=== PATIENT | male | born 1980 | race Caucasian/White ===

== ENCOUNTER 2021-07-14 10:51 | Emergency (ER) | payer OTHER, SELFPAY ==
[2021-07-14 11:03] VITALS: BP 144/77; PULSE 80; RESP 16; TEMP 36.1; O2SAT 100
--- NOTE | 2021-07-14 11:24 | ED.GENADULT ---
HPI - General Adult General Chief complaint: Skin/Abscess/Foreign Body Stated complaint: redness/painful right leg Time Seen by Provider: 07/14/21 11:24 Source: patient and RN notes reviewed Mode of arrival: ambulatory Limitations: no limitations History of Present Illness HPI narrative: 41-year-old male presents with complaints of redness, warmth, and pain to right lower leg for 1 day. Cristo reports increasing redness and warmth throughout the night. Cristo reports he noticed a blister to RT heel on Friday07/10/21 after walking in which busted 2 days later and then redness and warmth to leg. Elevation and Tylenol last taken on 07/13/21 with no relief. Denies radiation of tenderness, redness, or swelling. Denies numbness or tingling. No exacerbating factors. Denies drainage. Denies fever or chills. Denies nausea, vomiting, and abdominal pain. Tolerating po liquids. Remains active. The patient reports he has not been diagnosed with COVID-19. The patient reports he received 2 Pfizer COVID-19 vaccines. The patient reports he is not waiting for the results of a COVID-19 lab test. The patient reports he does not have weakness, fatigue, or myalgia. The patient reports he does not have a new or worsening cough or shortness of breath. The patient reports he does not have any rhinorrhea, congestion, loss of taste or smell, sore throat, and diarrhea. Denies recent traveling. Denies concerns for COVID-19 or exposures. At this time, the patient is not suspected of having COVID-19. Some parts of this dictation were generated by voice recognition software and may contain typographical and/or grammatical inaccuracies. Related Data Home Medications Medication Instructions Recorded Confirmed atorvastatin 07/14/21 calcium phos,dibas-vitamin D3 tablet PO 07/14/21 [Vitamin D (with calcium)] dapagliflozin [Farxiga] mg 07/14/21 glipizide mg 07/14/21 lisinopril 07/14/21 metformin mg PO 07/14/21 07/14/21 Allergies Allergy/AdvReac Type Severity Reaction Status Date / Time codeine Allergy Palpitation Verified 07/14/21 11:17 s Review of Systems Review of Systems: CONSTITUTIONAL: Denies fever, chills, sweats. EYES: Denies visual changes, redness, discharge. ENT: Denies rhinorrhea, congestion, sore throat, otalgia. CARDIOVASCULAR: Denies chest pain, palpitations, edema. RESPIRATORY: Denies dyspnea, wheezing, cough. GASTROINTESTINAL: Denies abdominal pain, nausea, vomiting, diarrhea. SKIN: Complains of redness, swelling, warmth, and pain to RT lower leg . MUSCULOSKELETAL: Denies acute back pain, joint pain, or myalgia. NEUROLOGIC: Denies numbness or focal weakness. PSYCHIATRIC: Denies anxiety or depression. All systems reviewed & are unremarkable except as noted in HPI and below. [facility] Past Medical History Medical History (Updated 07/14/21 @ 11:42 by ABRAHAM Sparks) Cellulitis Diabetes Hypercholesteremia Hypertension Surgical History Surgical History (Updated 07/14/21 @ 11:42 by ABRAHAM Sparks) No significant past surgical history Family History Family History (Updated 07/14/21 @ 11:43 by ABRAHAM Sparks) Father Skin cancer (melanoma) Mother Alive and well Social History Social History (Updated 07/14/21 @ 11:44 by ABRAHAM Sparks) Smoking status: Never smoker Tobacco type: cigarettes Second hand tobacco smoke exposure: No Alcohol intake: current Substance use: never Substance use type: does not use Living arrangements: with family Occupation/Education: occupation Gender identity (if verbalized by the patient): Male Comments At time of signature, agree with nurse past medical, surgical, social, and family history. There is relevant patient's history pertinent to the presenting complaint, no relevant family history pertinent to the presenting complaint. Exam Narrative: GENERAL: This is a well-nourished, well-developed patie
== END 2021-07-14 11:44 | disposition home or self-care (01) ==
PROVIDERS: Emergency Provider Nurse Practitioner Family
DX: L03.115 Cellulitis of right lower limb (principal); E11.9 Type 2 diabetes mellitus without complications; I10 Essential (primary) hypertension; Z79.84 Long term (current) use of oral hypoglycemic drugs
CPT/HCPCS: 99213; G0463